=== PATIENT | female | born 1990 | race Caucasian/White ===

== ENCOUNTER → 2016-09-17 | Outpatient (CLI) | payer BC ==
[~2016-09-17] MED LIST: BCPILLS PO; CYCL10TA6 PO; FLUT0.15 NAE; HYDR-5688 PO; MONT1TAB3 PO; OMEP20TA PO; [UNRECOGNIZED DRUG - CODE] PO
[2016-09-17 10:22] LABS: PROLACTIN 8.32 ng/mL
== END | disposition home or self-care (01) ==
LOC: C.LAB1850 08:47
PROVIDERS: ATTEND Obstetrics & Gynecology
DX: Z31.41 Encounter for fertility testing (principal)

== ENCOUNTER 2016-11-05 15:55 | Emergency (ER) | payer BC, OTHER ==
[~2016-11-05] VITALS: Ht 158.8 cm; Wt 85.3 kg
[~2016-11-05 15:55] MED LIST changes: -BCPILLS PO; -CYCL10TA6 PO; -FLUT0.15 NAE; -HYDR-5688 PO; -MONT1TAB3 PO; +NORE-151 PO; -OMEP20TA PO; -[UNRECOGNIZED DRUG - CODE] PO
[2016-11-05 16:00] VITALS: TEMP 36.9; Ht 158.8 cm; Wt 85.3 kg
[2016-11-05] MEDS ORDERED: MONT1TAB3 PO (16:30)
[2016-11-05] MEDS ORDERED: BCPILLS PO (16:30)
[2016-11-05] MEDS ORDERED: FLUT0.15 NAE (16:30)
[2016-11-05] MEDS ORDERED: OMEP20TA PO (16:30)
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
[2016-11-05] MEDS ORDERED: HYDR-5688 PO (17:55)
[2016-11-05] MEDS ORDERED: CYCL10TA6 PO (17:55)
[2016-11-05 18:07] VITALS: BP 163/111; PULSE 84; O2SAT 100
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
== END 2016-11-05 18:08 | disposition home or self-care (01) ==
LOC: C.EDB 15:57 → C.EDD 18:08
DX: S06.0X0A Concussion without loss of consciousness, initial encounter (principal); M54.2 Cervicalgia; V44.5XXA Car driver injured in collision with heavy transport vehicle or bus in traffic accident, initial encounter; Z79.3 Long term (current) use of hormonal contraceptives; Z79.899 Other long term (current) drug therapy

== ENCOUNTER → 2016-11-17 | Outpatient (CLI) | payer BC ==
[~2016-11-17] MED LIST changes: +BCPILLS PO; +FLUT0.15 NAE; +HYDR-5688 PO; +MONT1TAB3 PO; -NORE-151 PO; +OMEP20TA PO
== END | disposition home or self-care (01) ==
LOC: C.LAB1850 10:51
PROVIDERS: ATTEND Obstetrics & Gynecology
DX: Z32.00 Encounter for pregnancy test, result unknown (principal)

== ENCOUNTER → 2016-11-19 | Outpatient (CLI) | payer BC | END | disposition home or self-care (01) | LOC: C.LAB1850 10:10 | PROVIDERS: ATTEND Obstetrics & Gynecology | DX: O09.00 Supervision of pregnancy with history of infertility, unspecified trimester (principal); Z3A.00 Weeks of gestation of pregnancy not specified ==

== ENCOUNTER → 2016-11-23 | Outpatient (CLI) | payer BC | END | disposition home or self-care (01) | LOC: C.LAB1850 08:06 | PROVIDERS: ATTEND Obstetrics & Gynecology | DX: O09.00 Supervision of pregnancy with history of infertility, unspecified trimester (principal) ==

== ENCOUNTER → 2016-12-01 | Outpatient (CLI) | payer BC | LOC: C.LAB1850 11:26 | PROVIDERS: ATTEND Obstetrics & Gynecology | DX: O03.9 Complete or unspecified spontaneous abortion without complication (principal) ==

== ENCOUNTER → 2016-12-07 | Outpatient (CLI) | payer BC | END | disposition home or self-care (01) | LOC: C.LAB1850 10:37 | PROVIDERS: ATTEND Obstetrics & Gynecology | DX: O03.9 Complete or unspecified spontaneous abortion without complication (principal); Z3A.00 Weeks of gestation of pregnancy not specified ==

== ENCOUNTER → 2016-12-09 | Outpatient (CLI) | payer BC ==
[2016-12-09 13:38] LABS: PREG INTERNAL NEGATIVE QC NEG CLEAR BACKGROUND; PREG INTERNAL POSITIVE QC POS CONTROL LINE
== END | disposition home or self-care (01) ==
LOC: C.LAB1850 12:50
PROVIDERS: ATTEND Obstetrics & Gynecology
DX: O03.9 Complete or unspecified spontaneous abortion without complication (principal)

== ENCOUNTER → 2016-12-14 | Outpatient (CLI) | payer BC | END | disposition home or self-care (01) | LOC: C.LAB 07:29 | PROVIDERS: ATTEND Obstetrics & Gynecology | DX: O03.9 Complete or unspecified spontaneous abortion without complication (principal); Z3A.00 Weeks of gestation of pregnancy not specified ==

== ENCOUNTER → 2017-02-24 | Outpatient (CLI) | payer BC ==
--- NOTE | 2017-02-24 11:32 | OPERATIVE REPORT ---
DATE OF OPERATION: 02/24/2017 PREOPERATIVE DIAGNOSIS: Infertility. POSTOPERATIVE DIAGNOSIS: Same. PROCEDURE: Injection of x-ray contrast media for hysterosalpingography. DESCRIPTION OF PROCEDURE: The patient was positioned on the fluoroscopy table in the dorsal lithotomy position. Speculum placed. Cervix cleansed with Betadine x3. Cervix grasped on the anterior lip with an Allis clamp. [place] uterine manipulator primed with x-ray contrast media gently placed through the cervical os. The patient repositioned on the fluoroscopy table. Injection took place. Normal fill and spill of the uterus and bilateral fallopian tubes noted. Final dictation per radiologist. The patient tolerated the procedure well. Instruments removed. I attest to the content of the Intraoperative Record and any orders documented therein. Any exception s are noted below.
--- NOTE | 2017-02-24 11:55 | DIAGNOSTIC IMAGING REPORT ---
HYSTEROSALPINGOGRAM CLINICAL HISTORY: 26 years-old Female with FERTILITY TESTING. FLUOROSCOPY TIME: 0.5 minutes. 8 images. TECHNIQUE: Hysterosalpingogram performed in conjunction with the [employer] department. Radiology was present to provide fluoroscopy. FINDINGS: The endometrial canal appears normal in size and morphology. No endometrial contour abnormalities or filling defects. There is opacification of the fallopian tubes with bilateral spillage into the peritoneal cavity. IMPRESSION: 1. Normal morphologic appearance of the endometrial canal. 2. There is is contrast spillage into the peritoneum bilaterally confirming bilateral fallopian tube patency. The above report was generated using voice recognition software. It may contain grammatical, syntax or spelling errors. Electronically signed by: Carlo Vasquez M.D. 02/24/2017 11:54 AM Dictated Date/Time: 02/24/2017 11:52 AM
== END | disposition home or self-care (01) ==
LOC: C.RAD 10:21
PROVIDERS: ATTEND Obstetrics & Gynecology
DX: Z31.41 Encounter for fertility testing (principal)

== ENCOUNTER → 2017-04-23 | Outpatient (CLI) | payer BC ==
[2017-04-23 15:50] LABS: BASO % 0.1 %; BASO ABS # 0.01 K/uL (0-0.2); COMPLETE YES; EOS % 1.4 %; HEMATOCRIT 40.7 % (37-47); IG% 0.2 %; LYMPH % 33.5 %; LYMPH ABS # 2.78 K/uL (1.2-3.4); MEAN CELL VOLUME 90.2 fL (80-100); MEAN CORPUSCULAR HEMOGLOBIN 30.6 pg (25-34); MEAN CORPUSCULAR HGB CONC 33.9 g/dl (32-36); MEAN PLATELET VOLUME 10.4 fL (7.4-10.4); MONO % 5.2 %; NEUT % 59.6 %; PLATELET COUNT 289 K/uL (130-400); RED BLOOD COUNT 4.51 M/uL (4.2-5.4)
[2017-04-23 16:10] LABS: ALT/SGPT 18 U/L (12-78); AST/SGOT 11 U/L (15-37); BLOOD UREA NITROGEN 7 mg/dl (7-18); BUN/CREATININE RATIO 11.7 (10-20); CALCIUM 9.2 mg/dl (8.5-10.1); CARBON DIOXIDE 25 mmol/L (21-32); CHLORIDE 105 mmol/L (98-107); CREATININE 0.61 mg/dl (0.60-1.20); GLUCOSE 73 mg/dl (70-99); POTASSIUM 3.6 mmol/L (3.5-5.1); SODIUM 138 mmol/L (136-145)
[2017-04-23 16:13] LABS: ALB/GLOB RATIO 1.1 (0.9-2); ALKALINE PHOSPHATASE 81 U/L (45-117)
== END | disposition home or self-care (01) ==
LOC: C.LAB 14:27
PROVIDERS: ATTEND Physician Assistant
DX: G44.221 Chronic tension-type headache, intractable (principal)